=== PATIENT | female | born 1960 | race Caucasian/White ===

== ENCOUNTER → 2016-10-13 | Outpatient (CLI) | payer OTHER ==
[~2016-10-13] MED LIST: CELEBREX 200 M200 M1 PO; CITRUCEL CAPLET1 TA1 PO; GLUCOSAMINE HC500 MG PO; LANSOPRAZOLE30 MG PO; LUTEIN10 MG PO; MULTIVITAMINS PO; PAXIL10 MG PO; STOOL SOFTENER100 MG PO; TRIAMTERENE-HC1 EAC2 PO; VITAMIN B-121000 MCG PO
== END ==
LOC: ULTRA 07:29
DX: K76.0 Fatty (change of) liver, not elsewhere classified (principal)

== ENCOUNTER → 2017-01-26 | Outpatient (CLI) | payer OTHER | LOC: RAD 01-06 13:39 | DX: C50.212 Malignant neoplasm of upper-inner quadrant of left female breast (principal) ==

== ENCOUNTER → 2018-02-02 | Outpatient (CLI) | payer OTHER | LOC: RAD 05:06 | DX: C50.912 Malignant neoplasm of unspecified site of left female breast (principal); Z17.0 Estrogen receptor positive status [ER+] ==

== ENCOUNTER 2018-08-09 05:29 | Day surgery (SDC) | payer OTHER ==
[~2018-08-09] VITALS: Ht 165.1 cm; Wt 108.9 kg
--- NOTE | ~2018-08-09 | O ---
[facility] [place] [address] OPERATIVE REPORT Name: RONAL LYNN Room #: DEP [facility].#: [id number] Admission: 08/09/18 ������������������ Attend Phys: Kervin Maritni MD Discharge: 08/09/18 ������������������ Date of : 64 Report #: [id number] THIS REPORT FOR: //name// CC: [facility] physician/PCP Alissa Cox DATE OF SERVICE: 08/09/2018 PREOPERATIVE DIAGNOSIS: Left breast mass, previous lumpectomy and radiation. POSTOPERATIVE DIAGNOSIS: Left breast mass, previous lumpectomy and radiation, final pathology pending. OPERATION: Left breast segmental resection with wire localization and specimen x-ray. SURGEON: Kervin Martini MD CHICK GRADER: Medical student [employer] Augustine3. SECOND PRESS HELPER: Medical Student [employer] Hieu3. ANESTHESIA: General. DESCRIPTION OF PROCEDURE: Under satisfactory general anesthesia and with the patient in the supine position, the left breast was widely prepped with ChloraPrep solution. Sterile drapes were applied. The radiologist had already performed wire localization for the biopsy clip within the mass in the upper left breast. This was the site of a previous lumpectomy for cancer. A recent needle biopsy revealed fat necrosis, however the mass was symptomatic and persistent, so the patient preferred to have it removed and I agreed. It was palpable but I wanted to be sure to remove the radiographic clips as well. A circumareolar incision was made, utilizing the old lumpectomy scar. Dissection was carried down through the skin and subcutaneous tissue and then cephalad to the guidewire, which was delivered into the incision. A segmental resection was performed, removing the entire palpable mass together with the tissue marked by the guidewire. The specimen was marked with sutures for orientation purposes. Specimen x-ray confirmed removal of the guidewire and the mass and all the clips together with normal tissue all around. The radiologist was happy with the specimen x-ray and so was I. The specimen was given directly to the pathologist. Palpation from within the breast revealed no other suspicious areas. Hemostasis was obtained using electrocautery. The breast tissue was reapproximated using interrupted 3-0 Vicryl. The skin was approximated using [facility] [address] [place] [address] OPERATIVE REPORT Name: RONAL LYNN Room #: [facility].#: [id number] Admission: 08/09/18 ������������������ Attend Phys: Kervin Martini MD Discharge: 08/09/18 ������������������ Date of : 64 Report #: [id number] running 4-0 subcuticular PDS. Sterile dressings were applied and the patient was taken to recovery in satisfactory condition. Estimated blood loss was less than 20 mL. ��������������������������������������������� ���������������������������������������� By: ��������������������������������������������� 1345 0976 Kervin Martini MD /nt
[~2018-08-09 05:29] MED LIST changes: +ARIMIDEX PO; +CVS LUTEIN 401 EACH PO; +DIOVAN320 MG PO; +LUNESTA3 MG PO; +MELATONIN 10 M1 EACH PO; +NORVASC5 MG PO; +PAXIL 20 MG TAB20 MG PO
[2018-08-09 09:19] LABS: CALCIUM 9.3 mg/dL (8.5-10.1); CREATININE 0.8 mg/dL (0.6-1.0); POTASSIUM 4.6 mmol/L (3.5-5.1)
--- NOTE | 2018-08-09 09:20 | EKG ---
[place] [address] [facility] [place] [address] ELECTROCARDIOGRAM REPORT Name: RONAL LYNN Room #: 150-3 [facility]#: [id number] ������������������ Admission: 08/09/18 ������������������ Attend Phys: Kervin Martini MD Discharge: ������������������ Date of : 64 Report #: [id number] ����������������������������������������������������������������� [id number] THIS REPORT FOR: //name// [facility] Test Date: 2018-08-09 Test Time: 08:51:26 Pat Name: RONAL LYNN Department: Room: 150 3 Gender: F [employer]: JAYA : 1960 Requested By: Kervin Martini Order Number: [id number] MD: Juan Case Measurements Intervals [place] Rate: 78 P: 30 DE: 124 QRS: 6 QRSD: 88 T: 9 QT: 364 QTc: 415 Interpretive Statements Sinus rhythm Abnormal R-wave progression, early transition Small inferior Q waves No previous ECG available for comparison Electronically Signed On 08-09-2018 9:20:23 [employer]STANT P[employer]DER SUPERVISOR by Juan Case [email or web address] ��������������������������������������������� <ELECTRONICALLY SIGNED> ���������������������������������������� By: Juan Case MD, [facility] ��������������������������������������������� 08/09/18 0920 0851 0 Juan Case MD, FACC /EPI
[2018-08-09 10:32] VITALS: BP 122/74
--- NOTE | 2018-08-12 12:09 | PATH ---
[facility] [address] [place] [address] PATHOLOGY RPT PROCEDURE Name: SHONDA CORONA Room #: DEP [facility] M.R.#: [id number] ������������������ Admission: 08/09/18 ������������������ Date of : 64 Discharge: 08/09/18 Report #: [id number] Path Case #: [id number] [facility] Accession Number: [id number] . 01 Material submitted: . LEFT BREAST SEGMENTAL RESECTION- LONG SUTURE LAT, SHORT SUTURE SUPERFICIAL . 01 Clinical history: . Left breast mass . 02 Diagnosis: Breast, left breast, segmental resection: - Central area of coarse calcification surrounded by dense fibrous tissue as well as fat necrosis, consistent with reparative changes. - Background breast tissue showing nonproliferative fibrocystic changes. - Previous biopsy site changes and material present. - Negative for atypia or malignancy. (IUV:jake; 08/11/2018) QMS/08/11/2018 . 02 Electronically signed: . Yessy Cruz MD, Pathologist NPI- [id number] . 01 Gross description: . The specimen is received in formalin, labeled "Shonda Corona, left breast segmental resection, long suture lateral, short suture superficial". Received is a 35 g lumpectomy specimen oriented with a short suture designating the superficial/anterior margin, and a long suture designating the lateral margin. The specimen measures 5.4 cm from superficial/anterior to deep/posterior, 5.0 cm from medial to lateral, and 3.3 cm from superior to inferior. There is a localization wire present which enters through the superficial/anterior aspect and exits through the deep/posterior aspect. The specimen is inked as follows: Superior-blue, inferior-green, lateral-red, medial-yellow, superficial/anterior-black, deep/posterior-orange. Sectioning reveals a partially calcified previous biopsy site, with four metallic clips present, measuring 2.4 x 1.3 x 0.6 cm in greatest dimensions. This site is 1.8 cm from the superficial/anterior margin, 2.0 cm from the deep/posterior margin, 0.5 cm from the inferior margin, 0.8 cm from the superior margin, 0.7 cm from the lateral margin, and 1.4 cm from the medial margin. This site is surrounded by a slight amount of white-sanders fibrous tissue and residual tumor is not grossly distinct. The specimen is submitted entirely from superficial/anterior to deep/posterior aspects in cassettes A1 through A38. The previous biopsy site is submitted in cassettes A14-A15, A18, A21-A23, A26, and A28-A31. The sections in cassettes A3 through A6 and A28 through A35 are additionally bisected into lateral and medial aspects. [address] [address] PATHOLOGY RPT PROCEDURE Name: SHONDA CORONA Room #: [facility] M.R.#: [id number] ������������������ Admission: 08/09/18 ������������������ Date of : 64 Discharge: 08/09/18 Report #: [id number] Path Case #: [id number] The sections in cassettes A7 through A27 are trisected from lateral to medial aspects. The cold ischemic time is 35 minutes. The total formalin fixation time is 32 hours and 13 minutes. (CAA; 08/10/2018) QAC/QAC . 02 Pathologist provided ICD-10: N60.12, N62 . 02 CPT . 687963 Specimen Comment: A courtesy copy of this report has been sent to Specimen Comment: [phone]. Specimen Comment: Report sent to DR JOHNSON Specimen Comment: A duplicate report has been generated due to demographic updates. Performed at: [address] [facility] [address], [place], [place] [id number] MD Davonte Hammond MD Phone: [phone] Performed at: [address] [facility] [id number] MD Yessy Cruz MD Phone: [phone]
== END 2018-08-09 14:40 | disposition home or self-care (01) ==
LOC: TBA 05:29 → OR 05:29 → PRE 08:37 → EDSTATUS 08:38 → OR 11:31
PROVIDERS: Specialist
DX: N64.1 Fat necrosis of breast (principal); N63.0 Unspecified lump in unspecified breast; Z79.899 Other long term (current) drug therapy
CPT/HCPCS: 50010; 50101; 50386; 50403; 56524; 56526; 62110; 62900; 70005

== ENCOUNTER → 2019-02-07 | Outpatient (CLI) | payer OTHER | LOC: RAD 01:06 | DX: Z12.31 Encounter for screening mammogram for malignant neoplasm of breast (principal) ==

== ENCOUNTER → 2020-03-12 | Outpatient (CLI) | payer OTHER | LOC: BC 07:41 | PROVIDERS: ATTEND Internal Medicine Hematology & Oncology | DX: Z12.31 Encounter for screening mammogram for malignant neoplasm of breast (principal); Z85.3 Personal history of malignant neoplasm of breast ==

== ENCOUNTER → 2021-03-19 | Outpatient (CLI) | payer OTHER | LOC: BC 09:05 | PROVIDERS: ATTEND Internal Medicine Hematology & Oncology | DX: Z12.31 Encounter for screening mammogram for malignant neoplasm of breast (principal); N64.89 Other specified disorders of breast ==

== ENCOUNTER → 2021-03-31 | Outpatient (CLI) | payer OTHER | LOC: MRI 11:56 | PROVIDERS: ATTEND Internal Medicine Hematology & Oncology | DX: C50.212 Malignant neoplasm of upper-inner quadrant of left female breast (principal); R92.2 Inconclusive mammogram; Z17.0 Estrogen receptor positive status [ER+] ==